=== PATIENT | male | born 1940 | race Asian ===

== ENCOUNTER → 2024-10-11 08:21 | Outpatient (REF) | payer MEDICARE, MEDICAID, OTHER, SELFPAY | LOC: RST 08:21 | PROVIDERS: ATTENDING PHYSICIAN Family Medicine; REFERRING PHYSICIAN Internal Medicine Cardiovascular Disease | DX: R13.10 Dysphagia, unspecified (principal) | CPT/HCPCS: 74230; 92611 ==